=== PATIENT | male | born 1990 | race Caucasian/White ===

== ENCOUNTER 2023-09-03 05:57 | Day surgery (SDC) | payer OTHER ==
[2023-09-02 08:59] LABS: BASOPHILS # (AUTO) 0.05 K/uL (0.00-0.20); BASOPHILS % (AUTO) 0.8 % (0.0-5.0); EOSINOPHILS # (AUTO) 0.27 K/uL (0.00-0.70); EOSINOPHILS % (AUTO) 4.4 % (0.0-8.0); HEMATOCRIT 44.2 % (42-54); IMMATURE GRANULOCYTE ABSOLUTE 0.01 K/uL (0-1); LYMPHOCYTES # (AUTO) 2.5 K/uL (1.0-4.8); LYMPHOCYTES % (AUTO) 40.3 % (21.0-51.0); MEAN CORPUSCULAR HGB CONC 34.6 g/dL (32.0-36.0); MEAN CORPUSCULAR VOLUME 89.5 fL (79-99); MONOCYTES # (AUTO) 0.6 K/uL (0.1-1.0); MONOCYTES % (AUTO) 10.4 % (3.0-13.0); NEUTROPHILS # (AUTO) 2.7 K/uL (1.8-7.7); NEUTROPHILS % (AUTO) 43.9 % (40.0-77.0); PLATELET COUNT (AUTO) 298 K/uL (130-400); RED BLOOD CELL COUNT(AUTO) 4.94 MIL/uL (4.50-6.20); RED CELL DISTRIBUTION WIDTH 12.4 % (11.0-15.5); WHITE BLOOD COUNT (AUTO) 6.2 K/uL (4.8-10.8)
[2023-09-02 09:06] LABS: ALBUMIN 4.2 g/dL (3.5-5.0); CREATININE 1.3 mg/dL (0.5-1.3); POTASSIUM 4.1 mmol/L (3.5-5.1)
[2023-09-02 09:23] LABS: INR 1.01 (0.85-1.15); PROTHROMBIN TIME 10.9 SEC (9.6-11.6)
[2023-09-02 09:24] LABS: PARTIAL THROMBOPLASTIN TIME 25.8 SEC (26.3-35.5)
[2023-09-02 09:32] VITALS: BP 134/76; PULSE 67; RESP 16
[~2023-09-03] VITALS: Ht 177.8 cm; Wt 85.0 kg
[2023-09-03] VITALS (17 sets, daily range): BP systolic 101–137; BP diastolic 51–76; PULSE 56–82; RESP 15–18
[~2023-09-03 05:57] MED LIST: ACET-2743 PO; IBUP-2784 PO
[2023-09-03] MEDS ORDERED: ACETAMINOPHEN 1,000 MG/100 ML VIAL IV ONE (07:00)
[2023-09-03] MEDS ORDERED: LIDOCAINE PF 100MG/5ML (2%) SYRINGE 5ML ONE (07:04)
[2023-09-03] MEDS ORDERED: MIDAZOLAM HCL 1 MG/ML 2ML VIAL ONE (07:04)
[2023-09-03] MEDS ORDERED: PROPOFOL 10 MG/ML 20ML VIAL IV ONE ×2 (07:04→07:55)
[2023-09-03] MEDS ORDERED: ROCURONIUM BROMIDE 10MG/1ML 5ML VL ONE (07:05)
[2023-09-03] MEDS ORDERED: FENTANYL CITRATE PF 50 MCG/1 ML 2ML VIAL ONE (07:05)
[2023-09-03] MEDS ORDERED: ROPIVACAINE 0.5% 5MG/ML 30ML ONE (07:10)
[2023-09-03] MEDS ORDERED: DEXAMETHASONE SOD PHOSPHATE 10MG/ML 1ML VIAL ONE (07:11)
[2023-09-03] MEDS: CEFAZOLIN SODIUM 2 GM VIAL ONE (07:14)
[2023-09-03] MEDS ORDERED: ONDANSETRON 4MG INJ ONE (07:43)
[2023-09-03] MEDS: EPINEPHRINE PF 1MG (1:1,000) 1 MG/ML AMP ONE (08:09)
[2023-09-03] MEDS: LACTATED RINGERS 1000ML 1,000 ML IV ONE (08:37)
[2023-09-03] MEDS ORDERED: GLYCOPYRROLATE 0.2 MG/ML 5 ML VIAL ONE (10:05)
[2023-09-03] MEDS ORDERED: NEOSTIGMINE METHYLSULFATE 1MG/ML IV ONE (10:05)
[2023-09-03] MEDS ORDERED: HYDR-4060 PO (10:39)
== END 2023-09-03 12:15 | disposition home or self-care (01) ==
LOC: DAH 05:57
PROVIDERS: ATTEND Student in an Organized Health Care Education/Training Program
DX: S43.431A Superior glenoid labrum lesion of right shoulder, initial encounter (principal); S46.011A Strain of muscle(s) and tendon(s) of the rotator cuff of right shoulder, initial encounter; M25.511 Pain in right shoulder; M75.41 Impingement syndrome of right shoulder; M75.21 Bicipital tendinitis, right shoulder; M19.90 Unspecified osteoarthritis, unspecified site; F17.200 Nicotine dependence, unspecified, uncomplicated; Z79.899 Other long term (current) drug therapy; X50.0XXA Overexertion from strenuous movement or load, initial encounter; Y93.89 Activity, other specified; Y92.89 Other specified places as the place of occurrence of the external cause; Y99.8 Other external cause status
CPT/HCPCS: 82040; 80048; 85025; 85610; 85730; 84134; 36415; 29827; 64415; 29826; A4663; J7030; A4565; A4452; J7120; J3010; J1100; J3490 ×2; J2001; J0171; J2250; J2704 ×2; J2405; J2710; J2795; J0690; A6223; A4930; C1713; A4215; A4223; A4213; A4222; A4221; A4600

== ENCOUNTER → 2025-01-05 | Outpatient (CLI) | payer OTHER ==
[~2025-01-05] MED LIST changes: -ACET-2743 PO; +HYDR-4060 PO
--- NOTE | 2025-01-06 02:41 | HMCIMG ---
EXAM: MR Right Lower Extremity Without IV Contrast, Knee CLINICAL HISTORY: M23.91 ??? Unspecified internal derangement of right knee TECHNIQUE: Multisequence, multiplanar magnetic resonance images of the right knee without intravenous contrast. Series acquired: 4 ??? AX T2 ??? 5 ??? AX T1 ??? 6 ??? AX 2D MERGE ??? 7 ??? COR PD ??? 8 ??? COR PD FS ??? 9 ??? COR 2D MERGE ??? 10 ??? SAG PD ??? 11 ??? SAG T2. CONTRAST: None. COMPARISON: None provided. FINDINGS LIGAMENTS Anterior cruciate ligament intact. Posterior cruciate ligament intact. Lateral collateral ligament complex intact. Medial collateral ligament intact. TENDONS Quadriceps tendon intact. Patellar tendon intact. Lateral and medial gastrocnemius tendons intact. Iliotibial band intact. Popliteus tendon intact. BONES No acute fracture or aggressive osseous lesion. Bone marrow signal intensity within normal limits. MUSCLES Muscle bulk and signal characteristics normal. FLUID Physiologic amount of joint fluid. CARTILAGE Articular cartilage preserved in all compartments. MENISCI Mild degenerative signal within the posterior horn of the medial meniscus with an early horizontal cleavage tear. Lateral meniscus intact. RETINACULA Medial and lateral patellar retinacula intact. IMPRESSION * Mild medial meniscal degeneration with early horizontal cleavage tear involving the posterior horn of the medial meniscus. * Otherwise unremarkable MRI of the right knee. /[place]
== END | disposition home or self-care (01) ==
LOC: RAH 13:00
PROVIDERS: ATTEND Emergency Medicine Emergency Medical Services
DX: S83.241A Other tear of medial meniscus, current injury, right knee, initial encounter (principal); M25.561 Pain in right knee; M23.91 Unspecified internal derangement of right knee; X58.XXXA Exposure to other specified factors, initial encounter; Y93.89 Activity, other specified; Y92.89 Other specified places as the place of occurrence of the external cause; Y99.8 Other external cause status
CPT/HCPCS: 73721